=== PATIENT | male | born 1940 | race Caucasian/White ===

== ENCOUNTER → 2017-03-24 | Outpatient (CLI) | payer MEDICARE ==
[2017-03-24 17:31] LABS: Blood Urea Nitrogen 24 mg/dL (9-20); Non-African American GFR(MDRD) >60 (>60 ml/min/1.73 sqM)
== END ==
LOC: LABWHC1 17:01
PROVIDERS: ATTEND Physician Assistant
DX: Z01.812 Encounter for preprocedural laboratory examination (principal); N28.9 Disorder of kidney and ureter, unspecified
CPT/HCPCS: 36415; 82565; 84520

== ENCOUNTER → 2017-09-14 | Outpatient (CLI) | payer MEDICARE ==
--- NOTE | 2017-09-14 08:42 | CT ---
EXAMINATION TYPE: CT shoulder LT wo con DATE OF EXAM: 09/14/2017 COMPARISON: NONE HISTORY: Left sided choulder pain post injury CT DLP: 475.[address] of the CT shoulder with reconstruction imaging. TECHNIQUE: Unenhanced CT of the right shoulder was performed with bone and soft tissue window setting s submitted in the axial coronal and sagittal planes. At a separate workstation 3-D TR imaging was o btained. FINDINGS: There is minimally displaced and mildly impacted left humeral neck fracture. Fracture exten ds into the ureter region of the greater tuberosity. No additional fractures are identified. There is a small hemarthrosis noted. No evidence for subluxation or dislocation. Moderate degenerative change AC joint with a mild spurring noted. No evidence for impingement. The acromion demonstrates a flat u ndersurface. Glenohumeral joint mildly narrowed. Chronic appearing left-sided rib deformities. The le ft lung as visualized is grossly unremarkable. IMPRESSION: 1. Mildly impacted mildly comminuted humeral neck fracture with extension into the region of the grea ter tuberosity.
== END | disposition home or self-care (01) ==
LOC: RADCTMAIN 08:03
PROVIDERS: ATTEND Orthopaedic Surgery
DX: S42.352A Displaced comminuted fracture of shaft of humerus, left arm, initial encounter for closed fracture (principal)

== ENCOUNTER 2019-06-08 12:07 | Day surgery (SDC) | payer MEDICARE ==
[2019-06-06 14:49] VITALS: BMI 33.2
[~2019-06-08 12:07] MED LIST: LACTATED RINGERS 1,000 ML IV SCH; LIDOCAINE 1% 20 ML VIAL (10MG/ML) FOR IV START INTRADERMA PRN; MORPHINE SULFATE 2 MG/ML SYRINGE IV PRN; ONDANSETRON 4 MG/2 ML VIAL IVP PRN; PHENOL TOPICAL ONE; Pre Op ABX Message 1 EACH MISC MISCELLANE ONE
[2019-06-08 12:25] VITALS: RESP 16; TEMP 97.7
[2019-06-08] MEDS ORDERED: MIDAZOLAM 2 MG/2 ML VIAL ONE (12:51)
[2019-06-08] MEDS ORDERED: KETAMINE 10 MG/ML 20 ML VIAL ONE (12:51)
[2019-06-08] MEDS ORDERED: PROPOFOL 10 MG/ML 20 ML VIAL IV ONE (12:51)
[2019-06-08] MEDS ORDERED: LIDOCAINE 1% INJ 10MG/ML (20 ML MDV) ONE (12:51)
[2019-06-08] MEDS ORDERED: LIDOCAINE 1% INJ 10MG/ML (20 ML MDV) SQ ONE (12:56)
[2019-06-08] MEDS ORDERED: SODIUM CHLORIDE 0.9% 100 ML with ceFAZolin 2,000 MG IV ONE ×2 (13:09)
--- NOTE | 2019-06-08 13:44 | P.OP ---
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 Postoperative Diagnosis: Same Procedure(s) Performed: Total phenol and alcohol procedure right hallux Anesthesia: MAC (With local anesthesia IE 4 mL of 1% Xylocaine plain) Estimated Blood Loss (ml): 1 Indications for Procedure: Pain with use of in close shoe gear Description of Procedure: On the date of surgery the patient was taken to the operating room in good condition condition placed on the operating table in supine position where IV anesthetic agents were administered and local anesthesia was administered locally to the right hallux IE 4 mL of 1% Xylocaine plain Clarington used for digital tourniquet. Patient's right foot and ankle were prepped and draped prior to applying the Clarington drain in the usual aseptic manner At this point in time attention was directed to the patient's right hallux where using a periosteal elevator the nail plate was totally avulsed from the nailbed area phenol was used to cauterize the matrix and when adequate quit cauterization had occurred it was neutralized with isopropyl alcohol the nailbed was covered with Adaptic and wrapped with 2 inch Clarence Viridiana drain was removed adequate hemostatic return was seen in all digits of the patient's right hallux the patient tolerated the surgery and anesthesia well was taken to the recovery room in good postoperative condition
[2019-06-08 14:13] VITALS: BP 149/75; PULSE 53
== END 2019-06-08 14:18 | disposition home or self-care (01) ==
LOC: OR 12:07
PROVIDERS: ATTEND Podiatrist Foot & Ankle Surgery
DX: L60.0 Ingrowing nail (principal); B35.1 Tinea unguium; I10 Essential (primary) hypertension; E78.49 Other hyperlipidemia; K21.9 Gastro-esophageal reflux disease without esophagitis; Z87.891 Personal history of nicotine dependence; Z86.73 Personal history of transient ischemic attack (TIA), and cerebral infarction without residual deficits; Z96.652 Presence of left artificial knee joint; Z79.82 Long term (current) use of aspirin; Z79.899 Other long term (current) drug therapy
CPT/HCPCS: 11750; J2250; J2405; J0690; J2001; J2704

== ENCOUNTER → 2019-07-21 | Outpatient (CLI) | payer MEDICARE ==
[2019-07-21 10:56] LABS: HCT 43.5 % (39.0-53.0); HGB 14.3 gm/dL (13.0-17.5); MCH 30.3 pg (25.0-35.0); MCHC 32.9 g/dL (31.0-37.0); MCV 92.1 fL (80.0-100.0); Mean Platelet Volume 6.9; Platelet Count 260 k/uL (150-450); RBC 4.73 m/uL (4.30-5.90); RDW 14.1 % (11.5-15.5); WBC 9.3 k/uL (3.8-10.6)
[2019-07-21 11:13] LABS: Potassium 4.8 mmol/L (3.5-5.1)
== END | disposition home or self-care (01) ==
LOC: LABPAT 09:52
PROVIDERS: ATTEND Internal Medicine Interventional Cardiology
DX: Z01.812 Encounter for preprocedural laboratory examination (principal); I48.0 Paroxysmal atrial fibrillation
CPT/HCPCS: 80051; 82565; 84520; 85027

== ENCOUNTER → 2019-08-03 | Day surgery (SDC) | payer MEDICARE ==
[2019-08-01 09:07] VITALS: BMI 32.0
[~2019-08-03] MED LIST changes: -MORPHINE SULFATE 2 MG/ML SYRINGE IV PRN; -ONDANSETRON 4 MG/2 ML VIAL IVP PRN; -PHENOL TOPICAL ONE; +PROPOFOL 10 MG/ML 20 ML VIAL IV ONE; -Pre Op ABX Message 1 EACH MISC MISCELLANE ONE; +SODIUM CHLORIDE 0.9% 1,000 ML IV SCH
[2019-08-03 08:03] VITALS: TEMP 97.9
--- NOTE | 2019-08-03 09:56 | CE ---
CARDIAC ELECTROPHYSIOLOGY REPORT ELECTRICAL CARDIOVERSION REPORT: PROCEDURE: Electrical cardioversion. PERFORMED BY: Dr. Eufemia Carrington. CLINICAL INFORMATION: Mr. Carrillo is a 79-year-old gentleman history of hypertension and recent onset atrial fibrillation with a controlled ventricular rate, unresponsive to pharmacological efforts. He was advised elective cardioversion after due anticoagulation for more than 4 weeks. PROCEDURE NOTE: Under the influence of ultra short-acting intravenous anesthetic agent with the anesthesiologist in attendance, initial 200-joule shock was delivered with anterior and posterior patches in a synchronized fashion. Patient did convert to sinus rhythm, very transiently had some P-waves and with PACs and then went back into atrial fibrillation. An additional shock at 250 joules was also delivered and this was still unsuccessful with a few sinus beats and PACs followed by atrial fibrillation. This was therefore an unsuccessful electrical cardioversion. Results were discussed with the patient and family. The patient is neurological intact and hemodynamically stable. He will be discharged later today and I will see him in the office in about a week. MMODL / IJN: [id number] /
[2019-08-03 10:31] VITALS: PULSE 77
[2019-08-03 11:32] VITALS: BP 110/74; RESP 16
== END ==
LOC: CATHCVL 07:29
PROVIDERS: ATTEND Internal Medicine Interventional Cardiology
DX: I48.0 Paroxysmal atrial fibrillation (principal)
CPT/HCPCS: 92960; J2704

== ENCOUNTER → 2021-07-31 | Outpatient (CLI) | payer MEDICARE ==
[2021-07-31 08:35] VITALS: BP 120/76; PULSE 82; RESP 18; TEMP 97.7
--- NOTE | 2021-07-31 09:54 | P.PAINCN ---
History of Present Illness - Reason for Consult Consult date: 07/31/21 - Chief Complaint Lumbar back pain - History of Present Illness is a 81-year-old pleasant male came to the [facility] pain clinic for initial evaluation for his lumbar back pain. Patient had lumbar back surgery at L4-L5, and L5-S1 levels. He he has ongoing pain for many years. Lately his pain is getting worse in the lower lumbar, and gluteal area. His most of his pain is in the gluteal area. He describes his pain is aching, throbbing, constant type of pain. He rated his pain 7-8 out of 10 in severity. With the help of medications his pain levels are 6-7 out of 10 in severity. Activities making his pain worse. Medications, resting helping in relieving his pain. His pain is not radiating below mid thigh area. Overall activities and decreased secondary to pain. Because of the pain sometimes patient is feeling lack of sleep, interest, and energy. Denied any bowel or bladder problems at this time. Patient using cane for walking support. Patient denied any suicidal ideas/homicidal ideas at this time. Patient denied any red flag symptoms related to pain. Review of Systems 1- Constitutional : Patient denies anorexia, no chills , no fever , no night sweats , no change of appetite, no lethargy 2- Ears : No ear ache , no tinnitus , no ear discharge , no change in hearing 3-Nose, Mouth ,Throat ; no bleeding gums, no sore throat , no epistaxis , no hoarseness , no nose pain , no voice change 4-Cardiovascular : Denies chest pain, denies lightheadedness , no orthopnea , no palpitation , no paroxysmal nocturnal dyspnea no syncope , no leg edema , no irregular heartbeat 5-Respiratory : Denies cough , no dyspnea , no hemoptysis , no sleep apnea, no wheezing , no excessive sputum 6-Gastrointestinal : No jaundice , no nausea , no vomiting ,No abdominal pain , no bloating , no coffee-ground emesis , no hematochezia , No melena , 7-Genitourinary : No hematuria , no discharge 8-Musculoskeletal : gait dysfunction , report low back pain , 9- Neurological : no ataxia , no aphasia ,no balance difficulties , no change in visions , no change in speech , no tremor , no vertigo , no sezure , no memory loss 10-Psychatric : no anexity ,no depression , no suicidal ideation , no change in appetite , no memory loss , no hallucination 11- Endocrine : no cold intolerence , no nocturia , no polyuria , no polydypsia , no heat intolerance 12-Hematologic : no easy bleeding , no easy brusing , 13-Allergic / immunology : no angioedema , no wheezing ,no allergic rhinitis no glutean intolerence 14-Integumentary : no brttle nails , no change hair / nails , no hirsutism no depigmentation , no foot/leg ulcers Past Medical History Past Medical History: Atrial Fibrillation, CVA/TIA, GERD/Reflux, Hyperlipidemia, Hypertension, Osteoarthritis (OA) Additional Past Medical History / Comment(s): BACK PAIN , SKIN CANCER History of Any Multi-Drug Resistant Organisms: None Reported Past Surgical History: Appendectomy, Back Surgery, Bowel Resection, Joint Replacement, Orthopedic Surgery Additional Past Surgical History / Comment(s): colostomy & then had reversal, stomach surg for ulcer, multiple left hand surg. related to injury, TOE NAIL REMOVED FROM RIGHT GREAT TOE , LEFT TOTAL KNEE Past Anesthesia/Blood Transfusion Reactions: Previous Problems w/ Anesthesia, Postoperative Nausea & Vomiting (PONV) Additional Past Anesthesia/Blood Transfusion Reaction / Comm: TAKES LONGER TO WAKE UP Smoking Status: Former smoker - Past Family History Mother Family Medical History: Cancer Brother(s) Family Medical History: Cancer Father Family Medical History: Cancer Sister(s) Family Medical History: Cancer Medications and Allergies Home Medications Medication Instructions Recorded Confirmed Type Diltiazem Cd [Cardizem Cd] 120 mg PO HS 07/12/14 07/29/21 History Docusate Sodium [Stool Softener] 100 mg PO AC-BRKFST 07/12/14 07/29/21 History Omeprazole [PriLOSEC] 20 mg PO HS 07/12/14 07/29/21 History Cholecalciferol (Vitamin D3) 2,000 unit PO DAILY 06/06/19 07/29/21 History [Vitamin D3] Multivitamins, Thera [Multivitamin 1 tab PO DAILY 06/06/19 07/29/21 History (formulary)] Apixaban [Eliquis] 5 mg PO BID 08/01/19 07/29/21 History Gabapentin [Neurontin] 100 mg PO BID 08/01/19 07/29/21 History Lubiprostone [Amitiza] 24 mcg PO BID 08/01/19 07/29/21 History atenoloL [Tenormin] 25 mg PO HS 08/01/19 07/29/21 History Atorvastatin [Lipitor] 20 mg PO MOTUWETHFR 07/29/21 07/29/21 History Docusate Sodium [Dok] 200 mg PO HS 07/29/21 07/29/21 History Tamsulosin [Flomax] 0.4 mg PO HS 07/29/21 07/29/21 History Allergies Allergy/AdvReac Type Severity Reaction Status Date / Time No Known Allergies Allergy Verified 07/29/21 16:00 Physical Exam Vitals: Vital Signs Temp Pulse Resp BP Pulse Ox 07/31/21 08:29 97.7 F 82 18 120/76 96 General: Well-developed, well-nourished, no acute distress HEENT: Normocephalic, and atraumatic Neck: Supple, no neck swelling Psychiatric: Appropriate mood, and affect 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 Sensation grossly intact Lower extremity: Normal strength, and decreased range of motion secondary to pain. Using cane for walking. Without cane patient has a wobbly gait Lumbar spine: Paravertebral tenderness: positive , healed scar in the lower lumbar spine area Lumbar facet load test : positive Sacroiliac joint tenderness: Positive Thigh thrust test: Positive SI joint compression test: Positive Fabere test: Positive Results Results: MRI of the lumbar spine done on 05/29/2021 showed At L2-L3, there is a new left paracentral, and foraminal disc osteophyte complex indenting the thecal sac. There is a progress in mild to moderate central canal stenosis. At L3-L4, there is a progressing mild central canal stenosis. There is a progressing mild to moderate bilateral foraminal stenosis. At L4-L5, and L5-S1, there is a stable postoperative changes without significant central canal or foraminal stenosis. Assessment and Plan Assessment: Sacroiliac joint dysfunction Lumbar spondylosis without myelopathy Lumbar postlaminectomy syndrome Myofascial pain syndrome, and chronic pain syndrome Plan: 1 Diagnoses, prognosis, and multiple treatment options including but not limited to physical therapy, interventional therapy, adjunct medication therapy, narcotic medication, and surgical options were discussed with the patient. And all questions were answered to the patient's satisfaction. #2 treatment plan agreement: Patient was thoroughly discussed regarding the treatment plan, procedures, medications discussed with the patient. Patient, and his family member clearly understood and answered all the questions. #3 Patient was counseled on importance of regular exercise. Including rodo chi, aerobic exercises as tolerated. Which helps for chronic pain, and overall well- being. Patient also counseled regarding importance of weight control rolling chronic pain, and overall other health issues. By altering diet habits, minimizing sugar intake, and processed foods helps in minimizing Inflammation. #4 consultation: Patient tried physical therapy in the past recommended to continue those exercises at home as tolerated. #5 investigations: MAPS , urine drug test- reviewed #6 interventional procedures: Bilateral sacroiliac joint injection. Procedure, complications, alternatives discussed with the patient. #7 medications #1 Tylenol 500 mg by mouth every 8hours as needed , total dose per day not more than 2 g per day #8 morphine milligrams equivalents dose ( MME) per day: 0 from the pain clinic. #9 TENS unit's, and percussion massage device #10 disposition scheduled to follow up with pain clinic for bilateral sacroiliac joint injection in 2-4 weeks duration . Time with Patient: Greater than 30 PQRS Measure Charge Sheet Mode of Arrival: Cane - Pain Location Back Non-Pharmacological Interventions: Home Exercise, Inactivity, Physical Therapy, Sitting Pharmacological Interventions: Medication PQRS Narrative: Smoking Status Former smoker Blood Pressure 120/76 Pain Intensity [Back] 8 Scale Used Numeric (1 - 10) Hx Alcohol Use (MH) Yes: RARE Home Medications: Ambulatory Orders Diltiazem Cd [Cardizem Cd] 120 mg PO HS 07/12/14 Docusate Sodium [Stool Softener] 100 mg PO AC-BRKFST 07/12/14 Omeprazole [PriLOSEC] 20 mg PO HS 07/12/14 Cholecalciferol (Vitamin D3) [Vitamin D3] 2,000 unit PO DAILY 06/06/19 Multivitamins, Thera [Multivitamin (formulary)] 1 tab PO DAILY 06/06/19 Apixaban [Eliquis] 5 mg PO BID 08/01/19 Gabapentin [Neurontin] 100 mg PO BID 08/01/19 Lubiprostone [Amitiza] 24 mcg PO BID 08/01/19 atenoloL [Tenormin] 25 mg PO HS 08/01/19 Atorvastatin [Lipitor] 20 mg PO MOTUWETHFR 07/29/21 Docusate Sodium [Dok] 200 mg PO HS 07/29/21 Tamsulosin [Flomax] 0.4 mg PO HS 07/29/21
== END | disposition home or self-care (01) ==
LOC: PNWHC3 08:12
DX: M47.816 Spondylosis without myelopathy or radiculopathy, lumbar region (principal); M96.1 Postlaminectomy syndrome, not elsewhere classified
CPT/HCPCS: 99211

== ENCOUNTER 2021-09-10 08:03 | Day surgery (SDC) | payer MEDICARE ==
[~2021-09-10 08:03] MED LIST changes: -LIDOCAINE 1% 20 ML VIAL (10MG/ML) FOR IV START INTRADERMA PRN; -PROPOFOL 10 MG/ML 20 ML VIAL IV ONE; -SODIUM CHLORIDE 0.9% 1,000 ML IV SCH
[2021-09-10 08:40] VITALS: RESP 16; TEMP 97.8
[2021-09-10] MEDS ORDERED: fentaNYL (PF) 50 MCG/ML 2 ML AMP ONE (08:41)
[2021-09-10] MEDS ORDERED: ROPIVACAINE 5MG/ML 20ML VIAL ONE (08:41)
[2021-09-10] MEDS ORDERED: MIDAZOLAM 2 MG/2 ML VIAL ONE (08:41)
[2021-09-10] MEDS ORDERED: methylPREDNISolone ACETATE 40 MG/ML 1 ML VIAL ONE (08:41)
--- NOTE | 2021-09-10 08:56 | P.PCN ---
Date of Procedure: 09/10/21 Procedure(s) Performed: Procedure= bilateral sacroiliac joints steroid injection under fluoroscopy guidance (fluoroscopy image stored on file in the radiology Department ) Preoperative diagnosis= 1-sacroiliitis 2-sacroiliac joint dysfunction 3- lumbar facet arthropathy 4-postlaminectomy pain syndrome lumbar area Postoperative diagnosis=Same as preop Diagnosis . Complication = none Condition= stable Anesthesia= moderate sedation with intravenous Versed 2 mg , and fentanyl 50 micrograms . Indication for the procedure= patient complaining of low back pain , examination was positive for severe tenderness over the sacroiliac joints bilaterally and patient diagnosed with sacroiliitis, for this reason he was good candidate for sacroiliac joint steroid injection. Description of the procedure= procedure risk and benefits discussed with the patient, including but not limited, risk of infection and bleeding, and ALLERGIC reaction to the medication and not complete pain relief and patient agreed with the preceding patient taken to the operating room, placed in prone position or standard monitors applied to the patient then after induction of anesthesia back prepped with chlorhexidine 3 times , Then under strict sterile technique, first I did the right sacroiliac joint the which was identified under fluoroscopy guidance been local infiltration of the skin and subcu interstitial with lidocaine 1% then 22-gauge Quincke Needle advanced slowly under fluoroscopy and placed in the right sacroiliac joint needle placement confirmed with AP and oblique and lateral view and after appropriate needle placement confirmed and after negative aspiration, or heme , then Ropivacaine 0.5% 4 mL, and 20 mg of Depo-Medrol mixed together and injected in the right sacroiliac joint after negative aspiration patient tolerated the procedure well without any complication. Then the left sacroiliac joint steroid injection done under strict sterile technique local infiltration of the skin and subcu interstitial at the location of the left sacroiliac joint then a 22-gauge Quincke Needle advanced slowly under fluoroscopy time placed in the left sacroiliac joint, needle placement confirmed with AP and oblique and lateral view then after appropriate needle placement confirmed and after negative aspiration 0.5% Ropivacaine 4 mL and 20 mg of Depo-Medrol injected in the left sacroiliac joint after negative aspiration patient tolerated the procedure well that any complications and she will follow up in clinic 3 weeks
[2021-09-10] MEDS ORDERED: IV FLUID CONTINUATION 1,000 ML IV ONE (08:59)
[2021-09-10 09:13] VITALS: BP 143/83; PULSE 102
--- NOTE | 2021-09-10 10:16 | FL ---
Fluoroscopy HISTORY: Pain 5 seconds fluoroscopy time supplied to the referring clinician. 2 intraoperative C-arm images docume nt the procedure. See dictated report from anesthesia.
== END 2021-09-10 09:31 | disposition home or self-care (01) ==
LOC: ORPAIN 08:03
PROVIDERS: ATTEND Specialist
DX: M46.1 Sacroiliitis, not elsewhere classified (principal)
CPT/HCPCS: 62322; G0260; J2250; J1030; J3010; J2795; 99152

== ENCOUNTER → 2021-10-07 | Outpatient (CLI) | payer MEDICARE ==
[2021-10-07 09:55] VITALS: PULSE 82; RESP 18; TEMP 98.1
[2021-10-07 10:03] VITALS: BP 108/70
--- NOTE | 2021-10-07 12:19 | P.PN ---
Subjective Progress Note Date: 10/07/21 This is a follow-up visit for this 81 years old male with a chronic history of severe low back pain, he is diagnosed with lumbar spondylosis with lumbar facet arthropathy and lumbar degenerative disc disease, and bilateral sacroiliitis recently we have done bilateral sacroiliac joint steroid injection which provided good pain relief, for short-term currently is complaining of severe low back pain with radiation to the buttock area bilaterally consistent increased with any movement or any activity, report that he feels dizzy today and during the examination which encased blood pressure the first one was 92/58, repeated blood pressure after 15 minutes was 108/70 Physical Examinations : -Constitutiona : Cooperative , not in acute distress . -HEENT : nech : supple , no Lymphadenopathy , normal thyroid size . : eyes : no ptosis , no icterus, no photophobia . - neurologic : Cranial nerve II to XII intact , no focal neurological deffecit . -psychatric : alert , oriented X 3 , appropriate affect , intact judgment and insight . -Lymphatic : no Lymphadenopathy . - musculoskeltal : Lumber spine moter stegnth lower extremities ,thigh and legs 5/5 Right side , 5/5 Left side deep tendon reflexes : normal Knee Jerk , normal ankle Jerk lumber facet Loading Test =positive Right , positive Left Range of motion of the lumbar spine Flexion 30 degrees, extension 10 degrees strait leg raising test = negative bilaterally Fabere test= negative bilaterally Sever tenderness over the Sacroiliac joint on the Right , and Left sides Gaenslen test= positive right ,and positive left . Seated flexion test= positive right ,and positive Left . Distraction test= positive bilaterally Sacroiliac compression test= positive bilaterally Results MRI of the lumbar spine done on 05/29/2021 showe At L2-L3, there is a new left paracentral, There is a progress in mild to moderate central canal stenosis. At L3-L4, there is a progressing mild central canal stenosis. There is a progressing mild to moderate bilateral foraminal stenosis At L4-L5, and L5-S1, there is a stable postoperative changes without significant central canal or foraminal stenosis. Assessment and Plan Sacroiliac joint dysfunction Lumbar spondylosis without myelopathy Lumbar postlaminectomy syndrome Myofascial pain syndrome, and chronic pain syndrome Plan: The patient could benefit from repeat sacroiliac joint steroid injection under fluoroscopy guidance Patient feels dizziness today and blood pressure was 92/58 and repeated was 108/70, and was referred to see (PCP ) for evaluation regarding his dizziness . Objective - Vital Signs Vital signs: Vital Signs Temp 98.1 F 10/07/21 09:52 Pulse 82 10/07/21 09:52 Resp 18 10/07/21 09:52 BP 108/70 10/07/21 09:52 Pulse Ox 96 10/07/21 09:52
== END | disposition home or self-care (01) ==
LOC: PNWHC3 08:57
PROVIDERS: ATTEND Specialist
DX: M47.816 Spondylosis without myelopathy or radiculopathy, lumbar region (principal); M46.1 Sacroiliitis, not elsewhere classified; M96.1 Postlaminectomy syndrome, not elsewhere classified; M79.18 Myalgia, other site; G89.4 Chronic pain syndrome
CPT/HCPCS: 99211

== ENCOUNTER 2021-11-19 12:14 | Day surgery (SDC) | payer MEDICARE ==
[2021-11-13 09:49] VITALS: BMI 29.6
[2021-11-19 12:40] VITALS: RESP 16; TEMP 98.4
[2021-11-19] MEDS ORDERED: LIDOCAINE 1% (10MG/ML) FOR IV START INTRADERMA ONE (12:45)
[2021-11-19] MEDS ORDERED: LACTATED RINGERS 1,000 ML IV ONE (12:45)
[2021-11-19] MEDS ORDERED: fentaNYL (PF) 50 MCG/ML 2 ML AMP ONE (13:09)
[2021-11-19] MEDS ORDERED: MIDAZOLAM 2 MG/2 ML VIAL ONE (13:09)
[2021-11-19] MEDS ORDERED: ROPIVACAINE 5MG/ML 20ML VIAL ONE (13:09)
[2021-11-19] MEDS ORDERED: IOPAMIDOL M200 10 ML VIAL ONE (13:09)
[2021-11-19] MEDS ORDERED: methylPREDNISolone ACETATE 40 MG/ML 1 ML VIAL ONE (13:09)
--- NOTE | 2021-11-19 13:21 | P.PCN ---
Date of Procedure: 11/19/21 Description of Procedure: Procedure: Sacroiliac joint injection bilateral Preoperative diagnosis: Sacroiliitis Postoperative diagnosis: Sacroiliitis Imaging: Fluoroscopy was used, images where saved to the medical record Complications: none Anesthesia: 1% lidocaine 5cc 1 mg of Versed and 50 g of fentanyl Description of the procedure: procedure risk and benefits discussed with the patient, including but not limited, risk of infection and bleeding, and allergic reaction to the medication and incomplete pain relief. Patient agreed and signed consent. Patient was taken to the room and placed in a prone position. Chlorhexidine was used to cleanse the skin. Under sterile conditions patient skin was anesthetized 1% lidocaine. Subcutaneous tissues were also anesthetized with a total 5 mL of 1% lidocaine. After that, a 22-gauge spinal needle was advanced through the anesthetized location under fluoroscopic guidance. Needle was advanced into the inferior portion of the sacroiliac joint. IV contrast was used to confirm spread within the joint. After adequate spread was achieved, 2.5 ML's of 0.5% ropivacaine with 40 mg of depomedrol was injected into the joint (steroid split between both sides if bilateral). Patient tolerated the procedure well. Sent to the recovery room in stable condition. Patient will follow up as directed.
[2021-11-19] MEDS ORDERED: IV FLUID CONTINUATION 1,000 ML IV ONE (13:29)
--- NOTE | 2021-11-19 13:30 | FL ---
EXAMINATION TYPE: FL guided pain mgmt statistic DATE OF EXAM: 11/19/2021 HISTORY: Fluoroscopy time 11 seconds of fluoroscopy provided. IMPRESSION: 1. Fluoroscopy time.
[2021-11-19 13:54] VITALS: BP 120/80; PULSE 89
== END 2021-11-19 14:03 | disposition home or self-care (01) ==
LOC: ORPAIN 12:14
PROVIDERS: ATTEND Hospitalist
DX: M46.1 Sacroiliitis, not elsewhere classified (principal); M51.26 Other intervertebral disc displacement, lumbar region
CPT/HCPCS: 64451; J2250; J1030; J3010; Q9966; J2795; G0260

== ENCOUNTER 2022-07-15 07:32 | Day surgery (SDC) | payer MEDICARE ==
[2022-07-14 12:24] VITALS: BMI 29.9
[~2022-07-15 07:32] MED LIST changes: +LIDOCAINE 1% (10MG/ML) FOR IV START INTRADERMA PRN
[2022-07-15 08:16] VITALS: TEMP 97.4
[2022-07-15] MEDS ORDERED: fentaNYL (PF) 50 MCG/ML 2 ML AMP ONE (08:23)
[2022-07-15] MEDS ORDERED: ROPIVACAINE 5MG/ML 20ML VIAL ONE (08:23)
[2022-07-15] MEDS ORDERED: methylPREDNISolone ACETATE 40 MG/ML 1 ML VIAL ONE (08:23)
[2022-07-15] MEDS ORDERED: MIDAZOLAM 2 MG/2 ML VIAL ONE (08:23)
--- NOTE | 2022-07-15 08:37 | P.PCN ---
Date of Procedure: 07/15/22 Procedure(s) Performed: Procedure= bilateral sacroiliac joints steroid injection under fluoroscopy guidance (fluoroscopy image stored on file in the radiology Department ) Preoperative diagnosis= 1-sacroiliitis 2-sacroiliac joint dysfunction 3- lumbar facet arthropathy 4-postlaminectomy pain syndrome lumbar area Postoperative diagnosis=Same as preop Diagnosis . Complication = none Condition= stable Anesthesia= moderate sedation with intravenous Versed 1 mg , and fentanyl 50 micrograms . Patient's start time= 0 825 sedation stop time =0 874 Indication for the procedure= patient complaining of low back pain , examination was positive for severe tenderness over the sacroiliac joints bilaterally and patient diagnosed with sacroiliitis, for this reason he was good candidate for sacroiliac joint steroid injection. Description of the procedure= procedure risk and benefits discussed with the patient, including but not limited, risk of infection and bleeding, and ALLERGIC reaction to the medication and not complete pain relief and patient agreed with the preceding patient taken to the operating room, placed in prone position or standard monitors applied to the patient then after induction of anesthesia back prepped with chlorhexidine 3 times , Then under strict sterile technique, first I did the right sacroiliac joint the which was identified under fluoroscopy guidance been local infiltration of the skin and subcu interstitial with lidocaine 1% then 22-gauge Quincke Needle advanced slowly under fluoroscopy and placed in the right sacroiliac joint needle placement confirmed with AP and oblique and lateral view and after appropriate needle placement confirmed and after negative aspiration, or heme , then Ropivacaine 0.5% 4 mL, and 20 mg of Depo-Medrol mixed together and injected in the right sacroiliac joint after negative aspiration patient tolerated the procedure well without any complication. Then the left sacroiliac joint steroid injection done under strict sterile technique local infiltration of the skin and subcu interstitial at the location of the left sacroiliac joint then a 22-gauge Quincke Needle advanced slowly under fluoroscopy time placed in the left sacroiliac joint, needle placement confirmed with AP and oblique and lateral view then after appropriate needle placement confirmed and after negative aspiration 0.5% Ropivacaine 4 mL and 20 mg of Depo-Medrol injected in the left sacroiliac joint after negative a spiration patient tolerated the procedure well that any complications and she will follow up in clinic 3 weeks
[2022-07-15] MEDS ORDERED: IV FLUID CONTINUATION 600 ML IV ONE ×2 (08:43)
[2022-07-15 08:56] VITALS: BP 115/68; PULSE 74; RESP 18
--- NOTE | 2022-07-15 09:01 | FL ---
EXAMINATION TYPE: FL guided pain mgmt statistic DATE OF EXAM: 07/15/2022 HISTORY: Fluoroscopy time 6 seconds of fluoroscopy provided. IMPRESSION: 1. Fluoroscopy time.
== END 2022-07-15 09:11 | disposition home or self-care (01) ==
LOC: ORPAIN 07:32
PROVIDERS: ATTEND Specialist
DX: M46.1 Sacroiliitis, not elsewhere classified (principal); M54.50 Low back pain, unspecified; M53.3 Sacrococcygeal disorders, not elsewhere classified; M47.816 Spondylosis without myelopathy or radiculopathy, lumbar region; M96.1 Postlaminectomy syndrome, not elsewhere classified
CPT/HCPCS: G0260 ×2; J2250; J1030; J3010; J2795

== ENCOUNTER → 2022-10-21 | Outpatient (CLI) | payer MEDICARE ==
[2022-10-21 14:54] LABS: African American GFR (CKD) 59.7 (60.0-200.0); Anion Gap 8.1 mmol/L (10.00-18.00); Blood Urea Nitrogen 22.1 mg/dL (9.0-27.0); Calcium 8.7 mg/dL (8.7-10.3); Carbon Dioxide 23.9 mmol/L (20.0-27.5); Non-African American GFR(CKD) 51.5 (60.0-200.0); Potassium 5.1 mmol/L (3.5-5.5)
== END | disposition home or self-care (01) ==
LOC: LABWHC1 09:47
PROVIDERS: ATTEND Internal Medicine Interventional Cardiology
DX: I10 Essential (primary) hypertension (principal); I25.10 Atherosclerotic heart disease of native coronary artery without angina pectoris
CPT/HCPCS: 36415; 80048

== ENCOUNTER 2022-11-25 07:28 | Day surgery (SDC) | payer MEDICARE ==
[2022-11-21 09:26] VITALS: BMI 29.9
[2022-11-25] MEDS ORDERED: LACTATED RINGERS 1,000 ML IV SCH (07:47)
[2022-11-25] MEDS ORDERED: LIDOCAINE 1% (10MG/ML) FOR IV START INTRADERMA PRN (07:47)
[2022-11-25 08:05] VITALS: RESP 16; TEMP 97.2
[2022-11-25] MEDS ORDERED: methylPREDNISolone ACETATE 40 MG/ML 1 ML VIAL ONE (08:05)
[2022-11-25] MEDS ORDERED: MIDAZOLAM 2 MG/2 ML VIAL ONE (08:05)
[2022-11-25] MEDS ORDERED: IOPAMIDOL M200 10 ML VIAL ONE (08:05)
[2022-11-25] MEDS ORDERED: fentaNYL (PF) 50 MCG/ML 2 ML AMP ONE (08:05)
--- NOTE | 2022-11-25 08:23 | P.PCN ---
Date of Procedure: 11/25/22 Procedure(s) Performed: PREOPERATIVE DIAGNOSIS: 1- Lumbar Degenerative Disc Diseases 2-Lumbar spondylosis with Facet arthropathy without myelopathy. 3-history of lumbar laminectomy surgery POSTOPERATIVE DIAGNOSIS: Same as preop diagnosis. PROCEDURE 1. Lumbar epidural steroid injection under fluoroscopic guidance at the L1-2 level. (Fluoroscopy imaging was available in radiology department) 2. Lumbar epidurogram. ANESTHESIA: moderate sedation with intravenous Versed 1 mg ,and fentanyle 50 Mcg Sedation start time : 0 8:10 Sedation end time : 0 8:19 EBL: Minimal PROCEDURE INDICATION: The patient with low back pain and radiculitis symptoms unresponsive to conservative treatment. Fluoroscopy was used to optimize visualization of the needle placement and to maximize safety. PROCEDURE DESCRIPTION / TECHNIQUE: The patient was seen and identified in the preoperative area. Risks, benefits, complications including but not limited to infections ,bleeding ,allergic reaction to the medications ,nerve damage and not complete pain releife , and alternatives were discussed with the patient. The patient agreed to proceed with the procedure and signed the consent. IV was started, and vital signs were stab le. Patient was taken to the OR and time out was completed. The patient was placed in the prone position on procedure table and a pillow was placed under the abdomen to reduce lumbar lordosis. The lumbosacral area was prepped and draped in the usual sterile fashion.ere closely monitored during the procedure. Conscious sedation was used during the procedure to decrease patients anxiety. Vital signs was monitered during the entire procedure. Using anterior-posterior fluoroscopy, the L1-2 interlaminar space was identified and the skin over this site was marked and then infiltrated with 1% lidocaine subcutaneously. Subsequently, a 20-gauge Tuohy epidural needle was inserted and advanced toward the epidural space using the ``Loss of resistance technique and guided by AP and lateral fluoroscopy. The correct needle position in the epidural space was verified with the injection of 2 mL of the water soluble contrast dye Isovue 200 contrast and observing an excellent epidurogram with the epidural spread of the dye, after negative aspiration for blood and CSF and in the absence of paresthesias. Again after negative aspiration, a 6 ml mixture containing 40 mg of Depo-medrol ( Preservetive Free ), and 2 ml of preservative free Normal Saline, and 2 ml of preservative free lidocaine 1% solution was injected and a washout of epidurogram was seen. Needle was withdrawn intact, skin was cleansed, and bandages were applied. COMPLICATIONS: None DISPOSITION / PLANS: The patient was placed in a supine position and transferred to the recovery area in a stable condition for observation. There was no evidence of lower extremity motor or sensory deficit after the procedure. Patient was discharged from the recovery room after meeting discharge criteria. Home discharge instructions were given to the patient by the staff. The patient was reexamined prior to discharge. The patient will schedule a follow up in the clinic in 2-4 weeks. Patient take Eliquis, and the last dose was taken more than 3 days ago
[2022-11-25] MEDS ORDERED: IV FLUID CONTINUATION 1,000 ML IV ONE (08:25)
[2022-11-25 08:50] VITALS: BP 115/73; PULSE 92
--- NOTE | 2022-11-25 09:10 | FL ---
EXAMINATION TYPE: FL guided pain mgmt statistic DATE OF EXAM: 11/25/2022 CLINICAL HISTORY: Low back pain. TECHNIQUE: Fluoroscopy. COMPARISON: None. FINDINGS: Fluoroscopic guidance was provided during pain relief procedure performed by Dr. Jaimes . A total of 4 seconds of fluoroscopic time was utilized during the procedure and 1 spot images are acquired. Single image acquired shows needle localization over the lumbar spine. IMPRESSION: As Above.
== END 2022-11-25 09:01 | disposition home or self-care (01) ==
LOC: ORPAIN 07:28
PROVIDERS: ATTEND Specialist
DX: M51.16 Intervertebral disc disorders with radiculopathy, lumbar region (principal); M47.26 Other spondylosis with radiculopathy, lumbar region; Z79.01 Long term (current) use of anticoagulants
CPT/HCPCS: 99152; 62323; J2250; J1030; J3010; Q9966

== ENCOUNTER → 2023-02-12 | Outpatient (CLI) | payer MEDICARE ==
[2023-02-12 08:56] VITALS: BP 106/58; PULSE 82; RESP 18; TEMP 97.5
--- NOTE | 2023-02-12 14:42 | P.PAINPG ---
PQRS Measure Charge Sheet Comment: A 82 yr old male w at side with a history of severe and chronic LBP secondary to lumbar DDD and spondylosis with facet arthropathy without myelopathy, BL Sacroiliitis presents today for evaluation s/p MATTI L1-L2. Pt states he experienced 55% pain relief for 2 wks s/p procedure. Pain level is provoked at 8/10 in intensity, constant, localized in the lower lumbar spine, sharp in character w shooting towards the buttocks. Pain is provoked by sitting for periods of 15 min or more. Pain is alleviated with injections in the past, heat, PT integrated w massage 3 times a week since winter 2021, laying supine, repositioning and rest. Interventional pain procedures completed include MATTI L1-L2 (Nov 2022), BL SI x3 Patient is currently on denies Patient denies any side effects of the medication(s), denies excessive drowsiness or sleepiness, denies suicidal ideation and reports that the current pain medication is helping to control the pain and improve activities of daily living. Patient denies any motor or sensory deficits. Patient denies any fever or night sweats, denies any change in the bowel movements or urination. Physical Examination: -Constitutional: Cooperative. Not in acute distress . - Neurologic: Cranial nerve II to XII intact. No focal neurological deficits. - Psychatric: Alert & oriented x 3. Matching mood & appropriate affect. Judgment and insight intact. - Musculoskeletal: Cervical spine: Muscle bulk/ tone/ strength in the bilateral upper extremities normal Vertebral body tenderness to palpation over Spurling test positive Distraction test positive Facet loading test positive TTP Thoracic spine Muscle bulk / tone/ strength in the bilateral paraspinal muscles normal Vertebral body tender to palpation over Facet loading test positive TTP Lumbar spine: Motor bulk/ tone/ strength lower extremities , thigh and legs : 5/5 Deep tendon reflexes : Normal Knee Jerk. Normal Ankle Jerk . Vertebral body tenderness to palpation over Lumbar Facet Loading Test positive Straight Leg Raise: positive at 30 degrees right side/ left side Gaenslen's Test positive Sacral spine : Severe tenderness over the Sacroiliac joint: right side / left side Range of motion: Flexion of the lumbar spine <60 degrees Range of motion: Extension of the lumbar spine <20 degrees Gaenslen's Test positive right side / left side Magi test: positive right side < left side Thigh Thrust Test positive right side / left side Sacral Thrust Test positive right side / left side Assessment and plan: Chronic LBP secondary to lumbar DDD, spondylosis with facet arthropathy without myelopathy Recommendation of BL SI injection. May need a series for optimal pain relief. Risks, benefits of procedure discussed and pt verbalized understanding. Admits to anticoagulant use or medical history of diabetes. Protocol for discontinuation/ continuation of medications donna procedure discussed. All questions answered. I have spent less than 30 minutes on patient care today. Dr Jaimes was available by phone for the evaluation of this patient. The time was used to review the medical records including relevant urine studies and Prescription history (MAPs), review of the available imaging, evaluation and examination of the patient, coordination of care with the medical staff and if applicable referring physicians, as well as creation of the medical record PQRS Narrative: Smoking Status Former smoker Hx Alcohol Use (MH) Yes: RARE Home Medications: Ambulatory Orders Cholecalciferol (Vitamin D3) [Vitamin D3] 2,000 unit PO DAILY 06/06/19 Multivitamins, Thera [Multivitamin (formulary)] 1 tab PO DAILY 06/06/19 Apixaban [Eliquis] 5 mg PO BID 08/01/19 Gabapentin [Neurontin] 100 mg PO BID 08/01/19 Lubiprostone [Amitiza] 24 mcg PO BID 08/01/19 Atorvastatin [Lipitor] 20 mg PO MOTUWETHFR 07/29/21 Tamsulosin [Flomax] 0.4 mg PO BID 07/29/21 Metoprolol Tartrate 12.5 mg PO BID 09/09/21 Midodrine [ProAmatine] 5 mg PO BID 09/09/21 Stool Softener (Unknown Name) 2 tab PO BID 10/02/21 Baclofen 10 mg PO BID 07/14/22 Pantoprazole [Protonix] 40 mg PO HS 07/14/22 Losartan Potassium (Unk Dose) 1 tab PO DAILY 11/21/22 Spironolactone 25 mg PO DAILY 11/25/22 Controlled Substance Measures - Controlled Substance Measures Is patient prescribed a controlled substance at discharge?: No
== END ==
LOC: PNWHC3 08:03
PROVIDERS: ATTEND Specialist
DX: M51.36 Other intervertebral disc degeneration, lumbar region (principal); M47.816 Spondylosis without myelopathy or radiculopathy, lumbar region; G89.29 Other chronic pain; Z87.891 Personal history of nicotine dependence
CPT/HCPCS: 99211

== ENCOUNTER 2023-03-17 07:11 | Day surgery (SDC) | payer MEDICARE ==
[2023-03-12 15:31] VITALS: BMI 31.8
[2023-03-17] MEDS ORDERED: LIDOCAINE 1% (10MG/ML) FOR IV START INTRADERMA PRN (07:19)
[2023-03-17 07:36] VITALS: RESP 16; TEMP 97.4
[2023-03-17] MEDS: LACTATED RINGERS 1,000 ML IV SCH ×2 (07:36→07:47)
[2023-03-17] MEDS ORDERED: IOPAMIDOL M200 10 ML VIAL ONE (07:49)
[2023-03-17] MEDS ORDERED: methylPREDNISolone ACETATE 40 MG/ML 1 ML VIAL ONE (07:49)
[2023-03-17] MEDS ORDERED: MIDAZOLAM 2 MG/2 ML VIAL ONE (07:49)
[2023-03-17] MEDS ORDERED: ROPIVACAINE 5 MG/ML 20 ML AMPULE ONE (07:49)
[2023-03-17] MEDS ORDERED: fentaNYL (PF) 50 MCG/ML 2 ML AMP ONE (07:49)
--- NOTE | 2023-03-17 08:07 | P.PCN ---
Date of Procedure: 03/17/23 Procedure(s) Performed: Procedure= bilateral sacroiliac joints steroid injection under fluoroscopy guidance (fluoroscopy image stored on file in the radiology Department ) Preoperative diagnosis= 1-sacroiliitis 2-postlaminectomy pain syndrome 3- lumbar facet arthropathy Postoperative diagnosis=Same as preop Diagnosis . Complication = none Condition= stable Anesthesia= moderate sedation with intravenous Versed 1 mg , and fentanyl 50 micrograms . Sedation start time:0753 Sedation end time :0804 Indication for the procedure= patient complaining of low back pain , examination was positive for severe tenderness over the sacroiliac joints bilaterally and patient diagnosed with sacroiliitis, for this reason he was good candidate for sacroiliac joint steroid injection. Description of the procedure= procedure risk and benefits discussed with the patient, including but not limited, risk of infection and bleeding, and ALLERGIC reaction to the medication and not complete pain relief and patient agreed with the preceding patient taken to the operating room, placed in prone position or standard monitors applied to the patient then after induction of anesthesia back prepped with chlorhexidine 3 times , Then under strict sterile technique, first I did the right sacroiliac joint the which was identified under fluoroscopy guidance been local infiltration of the skin and subcu interstitial with lidocaine 1% then 22-gauge Quincke Needle advanced slowly under fluoroscopy and placed in the right sacroiliac joint needle placement confirmed with AP and oblique and lateral view, then after that Isovue 200 one mL injected which confirmed the correct needle placement with the appropriate arthrogram of the sacroiliac joint, and after appropriate needle placement confirmed and after negative aspiration, or heme , then Ropivacaine 0.5% 4 mL, and 20 mg of Depo-Medrol mixed together and injected in the right sacroiliac joint after negative aspiration patient tolerated the procedure well without any complication. Then the left sacroiliac joint steroid injection done under strict sterile technique local infiltration of the skin and subcu interstitial at the location of the left sacroiliac joint then a 22-gauge Quincke Needle advanced slowly under fluoroscopy time placed in the left sacroiliac joint, needle placement confirmed with AP and oblique and lateral view then after appropriate needle placement confirmed, with the AP and oblique and lateral then after negative aspiration Isovue 200 one mL injected showed arthropathy of the left sacroiliac joint, and after negative aspiration 0.5% Ropivacaine 4 mL and 20 mg of Depo- Medrol injected in the left sacroiliac joint after negative aspiration patient tolerated the procedure well that any complications and she will follow up in clinic 3 weeks
[2023-03-17] MEDS ORDERED: LACTATED RINGERS 1,000 ML IV ONE (08:08)
--- NOTE | 2023-03-17 08:24 | FL ---
EXAMINATION TYPE: FL guided pain mgmt statistic DATE OF EXAM: 03/17/2023 HISTORY: Fluoroscopy time Total dose area product (DAP) in mGy*m? (or similar): 0.99727 IMPRESSION: 1. Fluoroscopy time.
[2023-03-17 08:25] VITALS: BP 115/74; PULSE 85
== END 2023-03-17 08:51 | disposition home or self-care (01) ==
LOC: ORPAIN 07:11
PROVIDERS: ATTEND Specialist
DX: M46.1 Sacroiliitis, not elsewhere classified (principal); M47.816 Spondylosis without myelopathy or radiculopathy, lumbar region; M96.1 Postlaminectomy syndrome, not elsewhere classified; Z79.01 Long term (current) use of anticoagulants
CPT/HCPCS: 99152; J2250; J1030; J3010; Q9966; J2795; G0260

== ENCOUNTER → 2023-04-09 | Outpatient (CLI) | payer MEDICARE ==
[2023-04-09 09:36] VITALS: BP 124/84; PULSE 82; RESP 18; TEMP 97.6
--- NOTE | 2023-04-09 14:29 | P.PAINPG ---
PQRS Measure Charge Sheet Comment: A 83 yr old male with a history of severe and chronic LBP secondary to post laminectomy syndrome presents today for evaluation s/p BL SI injection. Pt states he experienced 20 % pain relief x 3 wks s/p procedure. Pain level is provoked at 8/10 in intensity, constant, localized in the BL lower lumbar spine , dull/ achy/ sharp in character without shooting pain. Pain is provoked by lifting or standing/ walking for periods of 5 min or more. Pain is alleviated with PT w massage x 4-5 mo which he is currently in, medications, use of a cane for ambulatory assistance, heat, repositioning and rest. Interventional pain procedures completed include BL SI injection, MATTI L1-2 Patient is currently on Tyl Patient denies any side effects of the medication(s), denies excessive drowsiness or sleepiness, denies suicidal ideation and reports that the current pain medication is helping to control the pain and improve activities of daily living. Patient denies any motor or sensory deficits. Patient denies any fever or night sweats, denies any change in the bowel movements or urination. Physical Examination: -Constitutional: Cooperative. Not in acute distress . - Neurologic: Cranial nerve II to XII intact. No focal neurological deficits. - Psychatric: Alert & oriented x 3. Matching mood & appropriate affect. Judgment and insight intact. - Musculoskeletal: Cervical spine: Muscle bulk/ tone/ strength in the bilateral upper extremities normal Vertebral body tenderness to palpation over Spurling test positive Distraction test positive Facet loading test positive TTP Thoracic spine Muscle bulk / tone/ strength in the bilateral paraspinal muscles normal Vertebral body tender to palpation over Facet loading test positive TTP Lumbar spine: Motor bulk/ tone/ strength lower extremities , thigh and legs : 5/5 Deep tendon reflexes : Normal Knee Jerk. Normal Ankle Jerk . Vertebral body tenderness to palpation over L2, L5 Cedillo Test positive throughout spine Lumbar Facet Loading Test positive Straight Leg Raise: positive at 30 degrees right side/ left side Gaenslen's Test positive Sacral spine : Severe tenderness over the Sacroiliac joint: right side / left side Range of motion: Flexion of the lumbar spine <60 degrees Range of motion: Extension of the lumbar spine <20 degrees Gaenslen's Test positive right side / left side Magi test: positive right side / left side Thigh Thrust Test positive right side / left side Sacral Thrust Test positive right side / left side Imaging: MRI non contrast from 05/29/21 reviewed Assessment and plan: Chronic LBP secondary to post laminectomy syndrome Recommendation of Behavioral Health evaluation for SCS Trial Dx: G89.4, M54.17. Viewing Video. Risks, benefits of procedure discussed and pt verbalized understanding. Admits to anticoagulant use or medical history of diabetes. Protocol for discontinuation/ continuation of medications donna procedure discussed. Minimal anesthesia provided, if clinically indicated, consisting of Versed and Fentanyl. All questions answered. I have spent less than 30 minutes on patient care today. Dr Jaimes was available by phone for the evaluation of this patient. The time was used to review the medical records including relevant urine studies and Prescription history (MAPs), review of the available imaging, evaluation and examination of the patient, coordination of care with the medical staff and if applicable referring physicians, as well as creation of the medical record PQRS Narrative: Smoking Status Former smoker Hx Alcohol Use (MH) Yes: RARE Home Medications: Ambulatory Orders Multivitamins, Thera [Multivitamin (formulary)] 1 tab PO DAILY 06/06/19 Apixaban [Eliquis] 5 mg PO BID 08/01/19 Gabapentin [Neurontin] 100 mg PO BID 08/01/19 Lubiprostone [Amitiza] 24 mcg PO BID 08/01/19 Atorvastatin [Lipitor] 20 mg PO MOTUWETHFR 07/29/21 Metoprolol Tartrate 12.5 mg PO BID 09/09/21 Midodrine [ProAmatine] 5 mg PO TID 09/09/21 Stool Softener (Unknown Name) 2 tab PO BID 10/02/21 Baclofen 10 mg PO TID 07/14/22 Pantoprazole [Protonix] 40 mg PO HS 07/14/22 Losartan Potassium 50 mg PO QAM 11/21/22 Spironolactone 25 mg PO DAILY 11/25/22 Controlled Substance Measures - Controlled Substance Measures Is patient prescribed a controlled substance at discharge?: No
== END ==
LOC: PNWHC3 08:44
PROVIDERS: ATTEND Specialist
DX: M54.17 Radiculopathy, lumbosacral region (principal); G89.4 Chronic pain syndrome; M96.1 Postlaminectomy syndrome, not elsewhere classified; Z87.891 Personal history of nicotine dependence
CPT/HCPCS: 99211

== ENCOUNTER 2023-05-12 12:30 | Observation (INO) | payer MEDICARE ==
[2023-05-12] MEDS ORDERED: ONDANSETRON 4 MG/2 ML VIAL IVP STA (12:54)
--- NOTE | 2023-05-12 13:15 | XR ---
EXAMINATION TYPE: XR chest 2V DATE OF EXAM: 05/12/2023 COMPARISON: 08/13/2022 TECHNIQUE: PA and lateral views submitted. HISTORY: Chest pain FINDINGS: The lungs are clear and there is no pneumothorax, pleural effusion, or focal pneumonia. Heart size normal and no overt failure. Osseous structures demonstrate hypertrophic and degenerative changes of the spine. Hyperinflation suggests COPD. Diffuse osteopenia with arthropathy of the shoulders. Chroni c rib cage deformities are seen and there are surgical clips in the epigastrium. IMPRESSION: 1. No acute process. Diffuse emphysematous changes.
--- NOTE | 2023-05-12 13:25 | ED ---
Chest Pain HPI - General Chief Complaint: Chest Pain Stated Complaint: chest pain Time Seen by Provider: 05/12/23 12:40 Source: patient, RN notes reviewed Mode of arrival: ambulatory Limitations: no limitations - History of Present Illness Initial Comments: 83-year-old male presents emergency Department with chief complaint of chest pain. Patient states it has been on and off throughout the weekend he states he was seen by PCP sent him over here for further evaluation and possible admission. Patient does have known nature fibrillation on anticoagulation. Patient states his pressure in his chest he doesn't days been nauseated. Patient denies any. Chills no cough or cold-like symptoms. Patient denies any sick contacts no pain rating into his back. - Related Data Home Medications Medication Instructions Recorded Confirmed Multivitamins, Thera [Multivitamin 1 tab PO DAILY 06/06/19 04/09/23 (formulary)] Apixaban [Eliquis] 5 mg PO BID 08/01/19 04/09/23 Gabapentin [Neurontin] 100 mg PO BID 08/01/19 04/09/23 Lubiprostone [Amitiza] 24 mcg PO BID 08/01/19 04/09/23 Atorvastatin [Lipitor] 20 mg PO [id number] 07/29/21 04/09/23 Metoprolol Tartrate 12.5 mg PO BID 09/09/21 04/09/23 Midodrine [ProAmatine] 5 mg PO TID 09/09/21 04/09/23 Stool Softener (Unknown Name) 2 tab PO BID 10/02/21 04/09/23 Baclofen 10 mg PO TID 07/14/22 04/09/23 Pantoprazole [Protonix] 40 mg PO HS 07/14/22 04/09/23 Losartan Potassium 50 mg PO QAM 11/21/22 04/09/23 Spironolactone 25 mg PO DAILY 11/25/22 04/09/23 Allergies Allergy/AdvReac Type Severity Reaction Status Date / Time No Known Allergies Allergy Verified 05/12/23 12:35 Review of Systems ROS Statement: Those systems with pertinent positive or pertinent negative responses have been documented in the HPI. ROS Other: All systems not noted in ROS Statement are negative. 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 History of Any Multi-Drug Resistant Organisms: None Reported Past Surgical History: Appendectomy, Back Surgery, Bowel Resection, Joint Replacement, Orthopedic Surgery Additional Past Surgical History / Comment(s): Colostomy with reversal, stomach surgery for ulcer, multiple left hand surgeries related to injury, LEFT TOTAL KNEE REPLACEMENT., PAIN CLINIC PROCEDURE. Past Anesthesia/Blood Transfusion Reactions: Previous Problems w/ Anesthesia, Postoperative Nausea & Vomiting (PONV) Additional Past Anesthesia/Blood Transfusion Reaction / Comment(s): TAKES LONGER TO WAKE UP. Past Psychological History: Anxiety Smoking Status: Former smoker Past Alcohol Use History: Occasional Past Drug Use History: None Reported - Past Family History Mother Family Medical History: Cancer Brother(s) Family Medical History: Cancer Father Family Medical History: Cancer Sister(s) Family Medical History: Cancer General Exam Limitations: no limitations General appearance: alert, in no apparent distress Head exam: Present: atraumatic, normocephalic, normal inspection Eye exam: Present: normal appearance, PERRL, EOMI. Absent: scleral icterus, conjunctival injection, periorbital swelling ENT exam: Present: normal exam, mucous membranes moist Neck exam: Present: normal inspection. Absent: tenderness, meningismus, lymphadenopathy Respiratory exam: Present: normal lung sounds bilaterally. Absent: respiratory distress, wheezes, rales, rhonchi, stridor Cardiovascular Exam: Present: irregular rhythm, normal heart sounds. Absent: regular rate, normal rhythm, systolic murmur, diastolic murmur, rubs, gallop, clicks GI/Abdominal exam: Present: soft, normal bowel sounds. Absent: distended, tenderness, guarding, rebound, rigid Course Vital Signs 05/12/23 12:36 Temperature 98.5 F Pulse Rate 90 Respiratory 18 Rate Blood Pressure 166/78 O2 Sat by Pulse 98 Oximetry Chest Pain MDM - MDM Was pt. sent in by a medical professional or institution (, PA, PRECISION INSTRUMENT [employer] TOOL [employer]KER, urgent care, hospital, or [facility]...) When possible be specific @ -PCP Dr. Block] Did you speak to anyone other than the patient for history (EMS, parent, family, police, friend...)? What history was obtained from this source @ -No Did you review nursing and triage notes (agree or disagree)? Why? @ -I reviewed and agree with nursing and triage notes Were old charts reviewed (outside hosp., previous admission, EMS record, old EKG, old radiological studies, urgent care reports/EKG's, [facility] records)? Report findings @ -No old charts were reviewed Differential Diagnosis (chest pain, altered mental status, abdominal pain women, abdominal pain men, vaginal bleeding, weakness, fever, dyspnea, syncope, headache, dizziness, GI bleed, back pain, seizure, CVA, palpatations, mental health, musculoskeletal)? @ -Differential Chest Pain: Stable Angina, Unstable Angina, STEMI, NSTEMI Aortic Dissection, Pneumothorax, Musculoskeletal, Esophageal Spasm GERD, Cholecystitis, Pancreatitis, Zoster, this is not meant to be an all-inclusive list. ble EKG interpreted by me (3pts min.). @ -As above X-rays interpreted by me (1pt min.). @ -Chest x-ray shows chronic changes CT interpreted by me (1pt min.). @ -None done U/S interpreted by me (1pt. min.). @ -None done What testing was considered but not performed or refused? (CT, X-rays, U/S, labs)? Why? @ -None What meds were considered but not given or refused? Why? @ -None Did you discuss the management of the patient with other professionals (professionals i.e. , PA, PRECISION IN[employer]UMENT [employer] TOOL MAKER, lab, RT, psych nurse, medical social worker, small wind energy installer, teacher, business banking officer, case management coordinator)? Give summary @ -Dr. Godfrey for admission given patient's complaints chest pain, multiple risk factors. Was smoking cessation discussed for >3mins.? @ -No Was critical care preformed (if so, how long)? @ -No Were there social determinants of health that impacted care today? How? (Homelessness, low income, unemployed, alcoholism, drug addiction, transportation, low edu. Level, literacy, decrease access to med. care, [facility], rehab)? @ -No Was there de-escalation of care discussed even if they declined (Discuss DNR or withdrawal of care, Hospice)? DNR status @ -No What co-morbidities impacted this encounter? (DM, HTN, Smoking, COPD, CAD, Cancer, CVA, ARF, Chemo, Hep., AIDS, mental health diagnosis, sleep apnea, morbid obesity)? @ -A. fib Was patient admitted / discharged? Hospital course, mention meds given and route, prescriptions, significant lab abnormalities, going to OR and other pertinent info. @ -[Admitted patient's initial workup is negative patient be admitted for cardiac rule out. Patient is on current blood thinners. Undiagnosed new problem with uncertain prognosis? @ -No Drug Therapy requiring intensive monitoring for toxicity (Heparin, Nitro, Insulin, Cardizem)? @ -No Were any procedures done? @ -No Diagnosis/symptom? @ -Chest pain Acute, or Chronic, or Acute on Chronic? @ -Acute Uncomplicated (without systemic symptoms) or Complicated (systemic symptoms)? @ -[complicated Side effects of treatment? @ -No Exacerbation, Progression, or Severe Exacerbation? @ -No Poses a threat to life or bodily function? How? (Chest pain, USA, AR, pneumonia, PE, COPD, DKA, ARF, appy, cholecystitis, CVA, Diverticulitis, Homicidal, Suicidal, threat to staff... and all critical care pts) @ -yes chest pain at risk for cardiac arrest Disposition Clinical Impression: Chest pain Disposition: ADMITTED IP TO THIS HOSP Condition: Fair Referrals: Nawaf Block MD [Primary Care Provider] - 1-2 days Time of Disposition: 14:33
[2023-05-12 13:58] LABS: Basophils % (A) 0 %; Eosinophils # (A) 0.2 k/uL (0-0.7); Eosinophils % (A) 2 %; HCT 40.2 % (39.0-53.0); HGB 12.9 gm/dL (13.0-17.5); Lymphocytes # (A) 2.2 k/uL (1.0-4.8); Lymphocytes % (A) 27 %; MCH 31.1 pg (25.0-35.0); MCHC 32.2 g/dL (31.0-37.0); MCV 96.6 fL (80.0-100.0); Mean Platelet Volume 7.8; Monocytes # (A) 0.4 k/uL (0-1.0); Monocytes % (A) 5 %; Neutrophils # (A) 5.1 k/uL (1.3-7.7); Neutrophils % (A) 63 %; Platelet Count 219 k/uL (150-450); RBC 4.16 m/uL (4.30-5.90); RDW 13.2 % (11.5-15.5); WBC 8.1 k/uL (3.8-10.6)
[2023-05-12 14:17] LABS: INR 0.9 (<1.2); Prothrombin Time 9.7 sec (9.0-12.0)
[2023-05-12] MEDS ORDERED: ONDANSETRON 4 MG/2 ML VIAL IVP PRN (14:23)
[2023-05-12] MEDS ORDERED: NITROGLYCERIN SL TABS 0.4 MG TAB SUBLINGUAL PRN (15:04)
[2023-05-12] MEDS: PANTOPRAZOLE 40 MG/10 ML VIAL IVP SCH ×2 (15:43→20:01)
[2023-05-12] MEDS ORDERED: HYDROcodone/APAP 5-325MG 1 EACH TAB PO PRN (19:03)
[2023-05-12] MEDS: ACETAMINOPHEN TAB 325 MG TAB PO PRN (19:37)
--- NOTE | 2023-05-12 21:12 | HP ---
HISTORY AND PHYSICAL CHIEF COMPLAINT: Chest pain, nausea. HISTORY OF PRESENT ILLNESS: This is an 83-year-old gentleman with a past medical history of multiple medical problems including atrial fibrillation, history of hypertension, hyperlipidemia, was having chest pain in the anterior part of the chest, which is diffuse in character as well as some nausea. The patient was referred to the ER from the PCP's office and the patient was admitted for further evaluation and treatment. Workup is in progress. There is no history of any fever, rigor, or chills at this time. PAST MEDICAL HISTORY: Reviewed include hypertension, hyperlipidemia, atrial fibrillation. Rest of the history and rest of the chart is also reviewed. HOME MEDICATIONS: Reviewed include Aldactone. Doses and rest of the medications reviewed, they are not confirmed yet. ALLERGIES: None. FAMILY HISTORY: History of cancer in the family. SOCIAL HISTORY: Previous history of smoking. REVIEW OF SYSTEMS: A 14-point review is negative except as mentioned earlier. PHYSICAL EXAMINATION: VITAL SIGNS: Pulse is 90, blood pressure 160/78, respirations 18. HEENT: Conjunctivae normal. NECK: No JVD. CARDIOVASCULAR: S1, S2. RESPIRATIONS: Breath sounds diminished at the bases. ABDOMEN: Soft and nontender. LEGS: No edema. NERVOUS SYSTEM: Nonfocal. SKIN: No ulcers, rashes, or bleeding. JOINTS: No active deforming arthropathy. LABORATORY DATA: Reviewed. ASSESSMENT: 1. Chest pain, possible unstable angina. 2. Nausea, possible acute gastritis. 3. Hypertension. 4. Hyperlipidemia. 5. History of atrial fibrillation. 6. Multiple medical issues. RECOMMENDATIONS AND DISCUSSION: This is an 83-year-old gentleman, who presented with multiple complex medical issues, we will monitor the patient closely. Rule out myocardial infarction. Cardiology consultation. Unstable angina protocol. Symptomatic treatment. Resume the home medications once they are confirmed. We will follow the patient closely with you and further recommendations to follow. See orders for further details. MMODL / IJN: [id number] /
[2023-05-12 21:18] VITALS: RESP 16
[2023-05-13] MEDS: PANTOPRAZOLE 40 MG/10 ML VIAL IVP SCH (08:41)
[2023-05-13] MEDS ORDERED: ASPIRIN 325 MG TAB PO SCH (09:00)
[2023-05-13] MEDS ORDERED: APIXABAN 5 MG TAB PO SCH (09:00)
[2023-05-13] MEDS ORDERED: MIDODRINE 5 MG TAB PO SCH (09:00)
[2023-05-13] MEDS ORDERED: ATORVASTATIN 20 MG TAB PO SCH (09:00)
[2023-05-13] MEDS ORDERED: METOPROLOL TARTRATE 50 MG TAB PO SCH (09:00)
[2023-05-13] MEDS ORDERED: LOSARTAN 50 MG TAB PO SCH (09:00)
[2023-05-13] MEDS ORDERED: SPIRONOLACTONE 25 MG TAB PO SCH (09:00)
[2023-05-13 09:26] LABS: Basophils # (A) 0.05 X 10*3/uL (0.00-0.10); Basophils % (A) 0.7 %; Eosinophils # (A) 0.21 X 10*3/uL (0.04-0.35); HCT 40.8 % (39.6-50.0); HGB 12.9 d/dL (12.0-15.0); Lymphocytes # (A) 1.87 X 10*3/uL (0.90-5.00); Lymphocytes % (A) 27.1 %; MCH 30.3 pg (27.0-32.0); MCHC 31.6 d/dL (32.0-37.0); MCV 95.8 FL (80.0-97.0); Mean Platelet Volume 10.6 FL (9.5-12.2); Monocytes # (A) 0.52 X 10*3/uL (0.20-1.00); Monocytes % (A) 7.5 %; NRBC Per 100 WBC 0 X 10*3/uL (0.00-0.01); Neutrophils # (A) 4.23 X 10*3/uL (1.80-7.70); Neutrophils % (A) 61.4 %; Platelet Count 225 X 10*3/uL (140-440); RBC 4.26 X 10*6/uL (4.40-5.60); RDW 13.5 % (11.5-14.5)
--- NOTE | 2023-05-13 09:32 | P.CRDCN ---
History of Present Illness Consult date: 05/13/23 Consult reason: chest pain History of present illness: History of present illness: This is an 83-year-old male patient of Dr. JENN Carrington with past medical history of hypertension, nonischemic cardiomyopathy, orthostatic hypotension on midodrine, chronic atrial fibrillation. Patient developed chest pain across his chest that started on Thursday. He had the chest pain on and off throughout the weekend and when he was seen by his PCP he was sent in the hospital for further evaluations. He denies having any nausea vomiting, no cough, fever or chills. It is now resolved unsure what caused improvement. He has only received Zofran in the emergency center. EKG sinus rhythm with no acute ST changes. Chest x-ray: No acute findings. Diffuse emphysematous changes. Hemoglobin 12.9. Troponin negative 3. ProBNP 2400 Home cardiac medications: Eliquis 5 mg twice daily, Lipitor 20 mg daily, losartan 50 mg daily, metoprolol tartrate 50 mg twice daily, spironolactone 12.5 mg daily. Cardiac catheterization 10/2022 revealed normal LV pressures, no gradient across the valve, no significant coronary artery disease. Echocardiogram 09/2022 revealed EF 40%, global LV hypokinesia, moderate TR, [id number] MR, RV AP 32. Cardioversion 2019 unsuccessful after 2 shocks the patient did convert to a sinus rhythm prior to discharge. Lexiscan stress test 2021 EF 55% with no ischemia. Review Of Systems: At the time of my evaluation: Constitutional: No fever, no chills. No weakness, fatigue or lethargy. EENT: No headache. No dizziness. Lungs: No shortness of breath, cough, no sputum production. No wheezing. Cardiovascular: No chest pain, no lower extremity edema. No palpitations. No paroxysmal nocturnal dyspnea. No orthopnea. No lightheadedness or dizziness. No syncopal episodes. Abdominal: No abdominal pain. No nausea, vomiting. Musculoskeletal: No myalgias. No muscle weakness, no frequent falls. Neurologic: No aphasia. No facial droop. No change in mentation. Physical examination: Gen: This is an 83-year-old male. He is resting but appears to be comfortable and in no acute distress. VS: reviewed HEENT: Head is atraumatic, normocephalic. Pupils equal, round. Sclerae is anicteric. NECK: Supple. No JVD. LUNGS: Clear to auscultation. No wheezes or rhonchi. No intercostal retractions. HEART: Irregular rate and rhythm. No murmur. ABDOMEN: Soft No tenderness. EXTREMITIES: No pedal edema. No calf tenderness. NEUROLOGICAL: Patient is awake, alert and oriented x3. Assessment: Atypical chest pain, acute coronary syndrome ruled out Hypertension Nonischemic cardiomyopathy Orthostatic hypertension Chronic atrial fibrillation Plan: Resume patient's home cardiac medications Obtain 2-D echocardiogram and Doppler study to assess cardiac structure and function If echocardiogram is unremarkable, patient is cleared from cardiology for discharge home and may follow-up with Dr. JENN Carrington in 2 weeks. Thank you kindly for this consultation. Nurse practitioner note has been reviewed, I agree with documented findings and plan of care. Patient was seen and examined. 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 History of Any Multi-Drug Resistant Organisms: None Reported Past Surgical History: Appendectomy, Back Surgery, Bowel Resection, Joint Replacement, Orthopedic Surgery Additional Past Surgical History / Comment(s): Colostomy with reversal, stomach surgery for ulcer, multiple left hand surgeries related to injury, LEFT TOTAL KNEE REPLACEMENT., PAIN CLINIC PROCEDURE. Past Anesthesia/Blood Transfusion Reactions: Previous Problems w/ Anesthesia, Postoperative Nausea & Vomiting (PONV) Additional Past Anesthesia/Blood Transfusion Reaction / Comment(s): TAKES LONGER TO WAKE UP. Past Psychological History: Anxiety Smoking Status: Former smoker Past Alcohol Use History: Occasional Additional Past Alcohol Use History / Comment(s): STARTED SMOKING AT AGE 18, QUIT IN 1994, SMOKED 1/2-1PPD. Past Drug Use History: None Reported - Past Family History Mother Family Medical History: Cancer Brother(s) Family Medical History: Cancer Father Family Medical History: Cancer Sister(s) Family Medical History: Cancer Medications and Allergies Home Medications Medication Instructions Recorded Confirmed Type Multivitamins, Thera [Multivitamin 1 tab PO DAILY 06/06/19 05/12/23 History (formulary)] Apixaban [Eliquis] 5 mg PO BID 08/01/19 05/12/23 History Gabapentin [Neurontin] 100 mg PO BID 08/01/19 05/12/23 History Lubiprostone [Amitiza] 24 mcg PO BID 08/01/19 05/12/23 History Atorvastatin [Lipitor] 20 mg PO DAILY 07/29/21 05/12/23 History Metoprolol Tartrate 50 mg PO BID 09/09/21 05/12/23 History Midodrine [ProAmatine] 5 mg PO BID 09/09/21 05/12/23 History Baclofen 10 mg PO BID 07/14/22 05/12/23 History Pantoprazole [Protonix] 40 mg PO HS 07/14/22 05/12/23 History Losartan Potassium 50 mg PO DAILY 11/21/22 05/12/23 History Spironolactone 12.5 mg PO DAILY 11/25/22 05/12/23 History Chlorhexidine Gluconate [Peridex] 15 ml PO BID 05/12/23 05/12/23 History Docusate [Colace] 200 mg PO BID 05/12/23 05/12/23 History Triamcinolone 0.5% Cream [Kenalog 1 applic TOPICAL BID 05/12/23 05/12/23 History 0.5% Cream] Allergies Allergy/AdvReac Type Severity Reaction Status Date / Time No Known Allergies Allergy Verified 05/12/23 16:04 Physical Exam Vitals: Vital Signs Temp Pulse Pulse Resp BP BP Pulse Ox 05/13/23 03:29 98.0 F 95 16 117/68 97 05/12/23 20:42 98.1 F 93 16 138/94 96 05/12/23 17:57 88 18 144/87 96 05/12/23 12:36 98.5 F 90 18 166/78 98 Intake and Output 05/12/23 05/13/23 05/13/23 22:59 06:59 14:59 Other: # Voids 1 2 Weight 95.708 kg Results 05/12/23 13:26 Cardiac Enzymes 05/12/23 05/12/23 05/12/23 Range/Units 13:26 16:09 19:02 Troponin I <0.012 <0.012 <0.012 (0.000-0.034) ng/mL Coagulation 05/12/23 Range/Units 13:26 PT 9.7 (9.0-12.0) sec APTT 24.0 (22.0-30.0) sec CBC 05/12/23 Range/Units 13:26 WBC 8.1 (3.8-10.6) k/uL RBC 4.16 L (4.30-5.90) m/uL Hgb 12.9 L (13.0-17.5) gm/dL Hct 40.2 (39.0-53.0) % Plt Count 219 (150-450) k/uL Current Medications Generic Name Dose Route Start Last Admin Trade Name Freq PRN Reason Stop Dose Admin Acetaminophen 650 mg 05/12/23 19:02 05/12/23 19:37 Acetaminophen Tab 325 Mg Tab PO 650 mg Q6HR PRN Administration Fever and/ or Pain Hydrocodone Bitart/Acetaminophen 1 each 05/12/23 19:03 Hydrocodone/Apap 5-325mg 1 Each Tab PO Q6HR PRN Pain Aspirin 325 mg 05/13/23 09:00 Aspirin 325 Mg Tab PO DAILY ESTELITA Nitroglycerin 0.4 mg 05/12/23 15:04 Nitroglycerin Sl Tabs 0.4 Mg Tab SUBLINGUAL Q5M PRN Chest Pain Ondansetron HCl 4 mg 05/12/23 14:23 Ondansetron 4 Mg/2 Ml Vial IVP Q6H PRN Nausea Pantoprazole Sodium 40 mg 05/12/23 14:22 05/12/23 20:01 Pantoprazole 40 Mg/10 Ml Vial IVP Not Given BID ESTELITA Intake and Output 05/12/23 05/13/23 05/13/23 22:59 06:59 14:59 Other: # Voids 1 2 Weight 95.708 kg 05/12/23 13:26
[2023-05-13 09:38] LABS: Blood Urea Nitrogen 16.2 mg/dL (9.0-27.0); Calcium 8.9 mg/dL (8.7-10.3); Carbon Dioxide 22.1 mmol/L (21.6-31.8); Chloride 108 mmol/L (96-109); Chol/HDL Ratio 2.35 Ratio; Glucose 87 mg/dL (70-110); LDL Cholesterol,Calculated 58.2 mg/dL (0.0-131.0); Potassium 4.6 mmol/L (3.5-5.5); Sodium 141 mmol/L (135-145); VLDL Calculation 13.04 mg/dL (5.00-40.00)
[2023-05-13] MEDS: ACETAMINOPHEN TAB 325 MG TAB PO PRN (10:09)
[2023-05-13 15:30] VITALS: BP 127/83; PULSE 80; TEMP 98
--- NOTE | 2023-05-13 17:19 | CA ---
Transthoracic Echo Report Name: Jarod Carrillo Age: 83 Gender: M : 1940 Exam Date: 05/13/2023 13:45 Exam Location: [facility] Ht (in): 69 Wt (lb): 211 Ordering Physician: Mark Gavin MD ([id number]) Attending/Referring Phys: Romaine AMAYA Grain Manager Kali Elliott Procedure CPT: Indications: chest pain a fib Cardiac Hx: Technical Quality: Fair Contrast 1: Total Dose (mL): Contrast 2: Total Dose (mL): MEASUREMENTS (Male / Female) Normal Values 2D ECHO LV Diastolic Diameter PLAX 4.8 cm 4.2 - 5.9 / 3.9 - 5.3 cm LV Systolic Diameter PLAX 3.2 cm IVS Diastolic Thickness 1.5 cm 0.6 - 1.0 / 0.6 - 0.9 cm LVPW Diastolic Thickness 1.6 cm 0.6 - 1.0 / 0.6 - 0.9 cm LV Relative Wall Thickness 0.6 RV Internal Dim ED PLAX 4.0 cm LVOT Diameter 2.3 cm Aortic Root Diameter 3.2 cm LA Systolic Diameter LX 3.2 cm 3.0 - 4.0 / 2.7 - 3.8 cm LV Diastolic Volume MOD BP 50.3 cm??? 67 - 155 / 56 - 104 cm??? LV Systolic Volume MOD BP 20.2 cm??? 22 - 58 / 19 - 49 cm??? LV Ejection Fraction MOD BP 59.9 % >= 55 % LV Diastolic Volume MOD 4C 53.8 cm??? LV Systolic Volume MOD 4C 18.0 cm??? LV Ejection Fraction MOD 4C 66.6 % LV Diastolic Length 4C 6.2 cm LV Systolic Length 4C 5.2 cm LV Diastolic Volume MOD 2C 46.7 cm??? LV Systolic Volume MOD 2C 20.7 cm??? LV Ejection Fraction MOD 2C 55.6 % LV Diastolic Length 2C 6.3 cm LV Systolic Length 2C 5.8 cm LA Volume 78.0 cm??? 18 - 58 / 22 - 52 cm??? Ascending Aorta Diameter 3.1 cm DOPPLER AV Peak Velocity 108.8 cm/s AV Peak Gradient 4.7 mmHg LVOT Peak Velocity 89.7 cm/s LVOT Peak Gradient 3.2 mmHg AV Area Cont Eq pk 3.5 cm??? MV Peak Velocity 105.3 cm/s MV Peak Gradient 4.4 mmHg MV Mean Velocity 48.9 cm/s MV Mean Gradient 1.3 mmHg MV Velocity Time Integral 21.4 cm MR Peak Velocity 385.1 cm/s MR Peak Gradient 59.3 mmHg Mitral E Point Velocity 91.8 cm/s Mitral A Point Velocity 41.1 cm/s Mitral E to A Ratio 2.2 MV Deceleration Time 173.4 ms MV E' Velocity 10.5 cm/s Mitral E to MV E' Ratio 8.7 TR Peak Velocity 247.8 cm/s TR Peak Gradient 24.6 mmHg Right Ventricular Systolic Press 29.7 mmHg FINDINGS Left Ventricle Normal LV size.Moderately increased septal wall thickness. Left ventricular ejection fraction is estimated at 50-55 %. Right Ventricle Moderate right ventricular dilatation. RVSP= 33mmhg. Right Atrium Moderate right atrial dilatation. Left Atrium Moderately increased left atrial volume. Mildly increased left atrial area. Mitral Valve Posterior mitral annular calcification. Mild MR. Aortic Valve Aortic valve not well visualized. No aortic valve stenosis or regurgitation. Tricuspid Valve Structurally normal tricuspid valve. Mild TR. Pulmonic Valve Pulmonic valve not well visualized. Mild PI. Pericardium Normal pericardium. Aorta Normal size aortic root and proximal ascending aorta. CONCLUSIONS Normal LV function Previewed by: Max Salinas MD Dr. Suresh Tumma MD (Electronically Signed) Final Date: 13 May 2023 17:18
--- NOTE | 2023-05-14 17:48 | P.DS ---
Providers Date of admission: 05/12/23 15:08 Expected date of discharge: 05/13/23 Attending physician: Sebastian Godfrey Consults: 05/12/23 15:04 Consult Physician Urgent Consulting Provider: Maximilian Moeller Consult Reason/Comments: chest pain Do you want consulting provider notified?: Yes Primary care physician: Nawaf Block [facility] Course: Final diagnosis Chest pain, possible unstable angina Nausea, possible acute gastritis, resolved Hypertension Hyperlipidemia History of atrial fibrillation Obesity with a BMI of 31.2 GI prophylaxis DVT prophylaxis Discharge disposition Patient is being discharged in a stable condition with guarded prognosis to home. Patient will follow-up with Dr. Block in the outpatient setting upon discharge. Patient is to continue with current medication regimen as mentioned below and close outpatient follow-up with cardiology Dr. Carrington in 2 weeks as scheduled. Total time taken is greater than 35 minutes. Hospital course This is a 83-year-old male who was recently admitted with chest pain as well as associated nausea and sent from PCPs office. Patient being closely monitored and evaluated by cardiology underwent 2-D echo showing EF of 50-55% with normal LV function recommending outpatient follow-up with his insurance claim representative Dr. Carrington. Patient has scheduled appointment in 2 weeks. Patient has been cleared by cardiology for discharge. Please refer to cardiology note for further HPI. Currently no reports of chest pain, shortness of breath, or palpitations. Patient is afebrile. No reports of nausea or vomiting and patient is tolerating diet. Patient will be discharged home today. Guarded prognosis. Physical exam: Gen: This is a 83-year-old male who is awake, alert and oriented 3, well- developed, well-nourished, obese HEENT: Head is atraumatic, normocephalic. Pupils equal, round. Sclerae is anicteric. NECK: Supple. No JVD. No lymphadenopathy. No thyromegaly. LUNGS: Clear to auscultation. No wheezes or rhonchi. No intercostal retractions. HEART: S1, S2 are muffled ABDOMEN: Soft. Bowel sounds are present. No masses. No tenderness. EXTREMITIES: No pedal edema. No calf tenderness. NEUROLOGICAL: Patient is awake, alert and oriented x3. Cranial nerves 2 through 12 are grossly intact. Please refer to medication reconciliation sheet for a list of medications. The impression and plan of care has been dictated by Kelli Schmid, Nurse Practitioner as directed. Dr. Epifanio MD I have performed a history and examination and MDM of this patient, discussed the same with the dictator, and agree with the dictator's assessment and plan as written ,documented as a scribe. Based on total visit time, I have performed more than 50% of the visit. Patient Condition at Discharge: Fair Plan - Discharge Summary New Discharge Prescriptions: New Acetaminophen Tab [Tylenol] 650 mg PO Q6HR PRN tab PRN Reason: Fever And/ Or Pain Continue Multivitamins, Thera [Multivitamin (formulary)] 1 tab PO DAILY Gabapentin [Neurontin] 100 mg PO BID Lubiprostone [Amitiza] 24 mcg PO BID Apixaban [Eliquis] 5 mg PO BID Midodrine [ProAmatine] 5 mg PO BID Metoprolol Tartrate 50 mg PO BID Pantoprazole [Protonix] 40 mg PO HS Chlorhexidine Gluconate [Peridex] 15 ml PO BID Docusate [Colace] 200 mg PO BID Triamcinolone 0.5% Cream [Kenalog 0.5% Cream] 1 applic TOPICAL BID Atorvastatin [Lipitor] 20 mg PO DAILY Baclofen 10 mg PO BID Losartan Potassium 50 mg PO DAILY Spironolactone 12.5 mg PO DAILY Discharge Medication List Multivitamins, Thera [Multivitamin (formulary)] 1 tab PO DAILY 06/06/19 [History] Apixaban [Eliquis] 5 mg PO BID 08/01/19 [History] Gabapentin [Neurontin] 100 mg PO BID 08/01/19 [History] Lubiprostone [Amitiza] 24 mcg PO BID 08/01/19 [History] Atorvastatin [Lipitor] 20 mg PO DAILY 07/29/21 [History] Metoprolol Tartrate 50 mg PO BID 09/09/21 [History] Midodrine [ProAmatine] 5 mg PO BID 09/09/21 [History] Baclofen 10 mg PO BID 07/14/22 [History] Pantoprazole [Protonix] 40 mg PO HS 07/14/22 [History] Losartan Potassium 50 mg PO DAILY 11/21/22 [History] Spironolactone 12.5 mg PO DAILY 11/25/22 [History] Chlorhexidine Gluconate [Peridex] 15 ml PO BID 05/12/23 [History] Docusate [Colace] 200 mg PO BID 05/12/23 [History] Triamcinolone 0.5% Cream [Kenalog 0.5% Cream] 1 applic TOPICAL BID 05/12/23 [History] Acetaminophen Tab [Tylenol] 650 mg PO Q6HR PRN tab 05/13/23 [Rx] Follow up Appointment(s)/Referral(s): Charo Carrington MD [STAFF PHYSICIAN] - 1 Week (please call for an appointment with Dr. Roger Carrington tomorrow ) Nawaf Block MD [Primary Care Provider] - 1-2 days Patient Instructions/Handouts: A-fib (Atrial Fibrillation) (DC), Chest Pain (DC) Activity/Diet/Wound Care/Special Instructions: Discharge pending echo Activity Limited until follow-up Follow-up with cardiology Dr. Carrington in 2 weeks Follow-up with primary care provider on discharge Continue taking medications as prescribed Discharge Disposition: HOME SELF-CARE
== END 2023-05-13 17:47 | disposition home or self-care (01) ==
LOC: EC 12:30 → 6NMEDSUR 15:08
PROVIDERS: ADMIT Hospitalist; ATTEND Hospitalist
DX: R07.89 Other chest pain (principal); R11.0 Nausea; I10 Essential (primary) hypertension; E78.5 Hyperlipidemia, unspecified; I48.20 Chronic atrial fibrillation, unspecified; E66.9 Obesity, unspecified; Z68.31 Body mass index [BMI] 31.0-31.9, adult; K21.9 Gastro-esophageal reflux disease without esophagitis; M19.90 Unspecified osteoarthritis, unspecified site; Z86.73 Personal history of transient ischemic attack (TIA), and cerebral infarction without residual deficits; Z85.828 Personal history of other malignant neoplasm of skin; Z98.890 Other specified postprocedural states; Z90.49 Acquired absence of other specified parts of digestive tract; Z87.11 Personal history of peptic ulcer disease; Z96.652 Presence of left artificial knee joint; F41.9 Anxiety disorder, unspecified; Z87.891 Personal history of nicotine dependence; Z80.9 Family history of malignant neoplasm, unspecified; I42.8 Other cardiomyopathies; I95.1 Orthostatic hypotension; Z79.01 Long term (current) use of anticoagulants; Z79.899 Other long term (current) drug therapy
CPT/HCPCS: 96376; 96374; 96375; 99285; 36415; 94760; 93005; 93306; 83880; 80061; 80048; 84484; 85025 ×2; 85610; 85730; 71046; G0378 ×2; J2405; C9113 ×2

== ENCOUNTER → 2023-12-08 | Outpatient (CLI) | payer MEDICARE ==
[2023-12-08 15:27] LABS: Basophils # (A) 0.07 X 10*3/uL (0.00-0.10); Basophils % (A) 0.9 %; Eosinophils # (A) 0.12 X 10*3/uL (0.04-0.35); Eosinophils % (A) 1.5 %; HCT 40.9 % (39.6-50.0); HGB 12.7 g/dL (13.0-17.0); Lymphocytes % (A) 29.5 %; MCH 28.9 pg (27.0-32.0); MCHC 31.1 g/dL (32.0-37.0); MCV 93.2 FL (80.0-97.0); Mean Platelet Volume 10.1 FL (9.5-12.2); Monocytes # (A) 0.74 X 10*3/uL (0.20-1.00); Monocytes % (A) 9.1 %; NRBC Per 100 WBC 0 X 10*3/uL (0.00-0.01); Neutrophils # (A) 4.78 X 10*3/uL (1.80-7.70); Neutrophils % (A) 58.8 %; Platelet Count 327 X 10*3/uL (140-440); RBC 4.39 X 10*6/uL (4.40-5.60); RDW 14.4 % (11.5-14.5); WBC 8.13 X 10*3/uL (4.50-10.00)
[2023-12-08 16:02] LABS: BUN/Creat Ratio 20.33 Ratio (12.00-20.00); Blood Urea Nitrogen 24.4 mg/dL (9.0-27.0); Carbon Dioxide 24.9 mmol/L (21.6-31.8); Chloride 106 mmol/L (96-109); Glucose 88 mg/dL (70-110); Potassium 5.1 mmol/L (3.5-5.5); Sodium 142 mmol/L (135-145)
== END | disposition home or self-care (01) ==
LOC: LABWHC1 09:20
PROVIDERS: ATTEND Internal Medicine Interventional Cardiology
DX: I48.19 Other persistent atrial fibrillation (principal); R06.02 Shortness of breath; R00.2 Palpitations
CPT/HCPCS: 36415; 80048; 84443; 85025

== ENCOUNTER → 2025-03-02 | Outpatient (CLI) | payer MEDICARE ==
--- NOTE | 2025-03-02 08:56 | MR ---
EXAMINATION TYPE: MR cervical spine wo con DATE OF EXAM: 03/02/2025 8:00 AM COMPARISON: None. CLINICAL INDICATION: Male, 84 years old with history of M54.2 CERVICALGIA, Neck pain, headaches, atax ia, leg weakness. TECHNIQUE: Multiplanar, multisequence images of the cervical spine were acquired without contrast. FINDINGS: No craniocervical junction abnormality, predental space widening, or prevertebral soft tissue swellin g. There is moderate degenerative disc disease especially mid and lower cervical spine characterized by desiccated and narrowed disks and disc osteophyte complex formation. Some Modic type I endplate [place] e noted C4-C5 and C5-C6. Scattered mild ligamentum flavum thickening is also present throughout. Moderate multilevel facet and uncovertebral joint arthropathy. Alignment is maintained. The disc osteophyte complexes and ligamentum flavum thickening impress upon to both the dorsal and ve ntral aspect of the thecal sac contributing to variable mild spinal canal stenoses throughout, greate st at C4-C5 and C5-C6. There is slight indentation onto the ventral cord at these levels but no cord compression or shelbie canal compromise. No discrete T2-weighted cord signal abnormality is identified. Slight patchy artifact projects over t he cord. At C3-C4, there is moderate right and mild left neuroforaminal stenosis. At C4-C5, there is moderate bilateral neuroforaminal stenosis, right greater than left. At C5-C6, moderate to severe bilateral neural foraminal stenosis. At C6-C7, mild left neuroforaminal stenosis. No prevertebral paravertebral soft tissue abnormality is seen. IMPRESSION: 1. Moderate degenerative disc disease throughout with scattered mild ligamentum flavum thickening as well as scattered moderate facet and uncovertebral joint arthropathy. 2. Multilevel mild spinal canal stenoses, greatest at C4-C5 and C5-C6. No cord compression or foramin al canal compromise. 3. Variable neuroforaminal stenoses as outlined above, moderate to severe on both sides at C5-C6 and moderate on both sides at C4-C5. [facility], , 03/02/2025 8:53 AM
== END | disposition home or self-care (01) ==
LOC: RADMRIMAIN 07:28
PROVIDERS: ATTEND Psychiatry & Neurology Neurology
DX: M47.812 Spondylosis without myelopathy or radiculopathy, cervical region (principal); M48.02 Spinal stenosis, cervical region; M50.31 Other cervical disc degeneration, high cervical region; M99.71 Connective tissue and disc stenosis of intervertebral foramina of cervical region
CPT/HCPCS: 72141

== ENCOUNTER → 2025-05-09 | Outpatient (CLI) | payer MEDICARE ==
--- NOTE | 2025-05-09 08:32 | MR ---
EXAMINATION TYPE: MR thoracic spine wo con DATE OF EXAM: 05/09/2025 7:56 AM COMPARISON: None. 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 TECHNIQUE: Multi planar, multi sequence imaging was performed utilizing: T1-weighted, short-tau inver velvet recovery and T2-weighted of the thoracic spine. IV Contrast: mL (None, if empty) FINDINGS: Alignment: Alignment is within normal limits. Vertebral bodies have preserved heights. Spinal cord: Spinal cord is within normal limits for signal. Discs: Intervertebral disc signal is maintained. No evidence of significant spinal canal or neural fo raminal stenosis. There is no evidence of extradural defects or central spinal canal narrowing at any thoracic vertebral body level Osseous structures: No abnormal bony edema on inversion recovery sequences. Multilevel osteophyte for mation and facet joint arthropathy. Scattered disc space narrowing. Few scattered Schmorl's nodes pre sent. Left renal cortical simple appearing cyst. No follow-up recommended. IMPRESSION: 1. No evidence for spinal fracture. 2. Spinal cord signal is within normal limits 3. Mild degeneration changes throughout the thoracic spine without evidence of significant spinal ca nal or neural foraminal stenosis. [facility], , 05/09/2025 8:29 AM
== END | disposition home or self-care (01) ==
LOC: RADMRIMAIN 06:56
PROVIDERS: ATTEND Psychiatry & Neurology Neurology
DX: M51.04 Intervertebral disc disorders with myelopathy, thoracic region (principal)
CPT/HCPCS: 72146